=== PATIENT | male | born 1990 | race Caucasian/White ===

== ENCOUNTER 2021-10-16 22:32 | Emergency (ER) | payer OTHER ==
[~2021-10-16] VITALS: Ht 175.3 cm; Wt 95.2 kg
[~2021-10-16 22:32] MED LIST: ALBUTEROL SULF8.5 GM INH; ALLEGRA-D 12 HOU1 EA PO; AUGMENTIN 875-1 EACH PO; CEPACOL SORE T1 EAC5 MM; CEPHALEXIN500 MG PO; TRAMADOL HCL50 MG PO; ULTRAM50 MG PO
[2021-10-17] MEDS ORDERED: CYCLOBENZAPRINE10 MG PO (00:05)
[2021-10-17] MEDS ORDERED: PREDNISONE20 MG PO (00:05)
== END 2021-10-17 00:25 | disposition home or self-care (01) ==
LOC: ED 22:32
DX: S39.012A Strain of muscle, fascia and tendon of lower back, initial encounter (principal); J45.909 Unspecified asthma, uncomplicated; Z88.8 Allergy status to other drugs, medicaments and biological substances; W01.0XXA Fall on same level from slipping, tripping and stumbling without subsequent striking against object, initial encounter; Y93.01 Activity, walking, marching and hiking; Y99.0 Civilian activity done for income or pay
CPT/HCPCS: 72100; 96372; 99283-25; J1885; J3360

== ENCOUNTER 2023-08-07 16:28 | Emergency (ER) | payer OTHER ==
[~2023-08-07] VITALS: Ht 175.3 cm; Wt 122.8 kg
[~2023-08-07 16:28] MED LIST changes: +CYCLOBENZAPRINE10 MG PO; +PREDNISONE20 MG PO
[2023-08-07] MEDS ORDERED: LIDODERM1 EACH TOP (16:49)
[2023-08-07] MEDS ORDERED: NAPROSYN500 MG PO (16:49)
[2023-08-07] MEDS ORDERED: ATIVAN1 MG PO (16:49)
[2023-08-07 16:59] VITALS: BP 137/91
== END 2023-08-07 17:10 | disposition home or self-care (01) ==
LOC: ED 16:28
DX: M54.9 Dorsalgia, unspecified (principal); X50.1XXA Overexertion from prolonged static or awkward postures, initial encounter; J45.909 Unspecified asthma, uncomplicated; E66.9 Obesity, unspecified; Z88.8 Allergy status to other drugs, medicaments and biological substances; Z79.899 Other long term (current) drug therapy
CPT/HCPCS: 96372; 99283; A9270-GY; J1885